=== PATIENT | female | born 1960 | race Caucasian/White ===

== ENCOUNTER 2018-04-03 16:10 | Observation (INO) ==
--- NOTE | 2018-04-03 16:55 | Emergency Department Note ---
Disposition Clinical Impression: Facial numbness, Urinary tract infection TIA (transient ischemic attack) Qualifiers: Transient cerebral ischemia type: unspecified Qualified Code(s): G45.9 - Transient cerebral ischemic attack, unspecified Disposition: Admitted As Inpatient Condition: Undetermined Time of Disposition: 19:08 General Adult HPI - General Chief complaint: ED General Medical Stated complaint: "L side face numb,urinating blood" Time Seen by Provider: 04/03/18 16:17 - History of Present Illness Pain Scale: 0 - Related Data Home Medications Medication Instructions Recorded Confirmed Alogliptin Benzoate [Alogliptin] 25 mg PO DAILY 04/03/18 04/03/18 Aspirin [Lo-Dose Aspirin EC] 81 mg PO DAILY 04/03/18 04/03/18 Lisinopril 2.5 mg PO DAILY 04/03/18 04/03/18 Metformin HCl [Glucophage] 1,000 mg PO BID 04/03/18 04/03/18 Simvastatin [Zocor] 20 mg PO HS 04/03/18 04/03/18 Allergies Allergy/AdvReac Type Severity Reaction Status Date / Time No Known Allergies Allergy Verified 12/10/17 10:01 Past Medical History - Past Medical History Medical history: Reports: diabetes, hyperlipidemia, hypertension, kidney stones Surgical history: Reports: ureteral stent (removal 12/09/15) Psychiatric history: Reports: no psych history SCRIP CLERK history: Reports: no SCRIP CLERK history - Social History Smoking Status: Never smoker Smokeless Tobacco Status: No Alcohol use: Reports: none Drug use: Reports: marijuana Physical Exam - General General appearance: alert, in no apparent distress Course Vital Signs Temperature 99.1 F 04/03/18 16:11 Pulse Rate 123 04/03/18 16:11 Respiratory Rate 20 04/03/18 16:11 Blood Pressure 154/96 04/03/18 16:11 O2 Sat by Pulse Oximetry 95 04/03/18 16:11 Temperature 99.1 F 04/03/18 16:23 Pulse Rate 74 04/03/18 18:33 Respiratory Rate 12 04/03/18 20:47 Blood Pressure 136/77 04/03/18 20:47 O2 Sat by Pulse Oximetry 98 04/03/18 18:33 Oxygen Delivery Oxygen Delivery Room Air Medical Decision Making - Lab Data Result diagrams: 04/03/18 16:39 04/03/18 16:39 Lab Results 04/03/18 04/03/18 04/03/18 Range/Units 16:14 16:39 16:39 WBC 10.6 (4.3-11.1) K/mcL RBC 4.90 (3.82-4.97) M/mcL Hgb 13.6 (11.5-15.4) g/dL Hct 39.1 (35.3-44.9) % MCV 79.8 L (83.0-100.0) fL MCH 27.8 L (28.0-33.3) pg MCHC 34.8 (31.6-35.5) g/dL RDW 12.4 (11.5-14.5) % Plt Count 294 (140-400) K/mcL MPV 10.3 (9.4-12.4) fL Immature Gran % 0.6 (0-4) % Seg Neutrophils % 66.6 % Lymphocytes % 26.7 % Monocytes % 4.8 % Eosinophils % 0.9 % Basophils % 0.4 % Neutrophils # 7.0 (1.6-8.9) K/mcL Lymphocytes # 2.8 (0.6-4.6) K/mcL Monocytes # 0.5 (0.0-1.3) K/mcL Eosinophils # 0.1 (0.0-0.6) K/mcL Basophils # 0.0 (0.0-0.2) K/mcL PT 11.2 (9.4-12.1) Seconds INR 1.0 APTT 29.6 (26.0-36.0) Seconds Sodium (136-145) mEq/L Potassium (3.5-5.1) mEq/L Chloride (98-107) mEq/L Carbon Dioxide (23-29) mEq/L BUN (6-20) mg/dL Creatinine (0.60-1.20) mg/dL Est GFR ( Amer) (> 60) Est GFR (Non-Af Amer) (> 60) BUN/Creatinine Ratio (6-26) Glucose (70-105) mg/dL POC Glucose 283 H (70-99) mg/dL Calculated Osmolality (280-300) Calcium (8.6-10.3) mg/dL Urine Color (Yellow) Urine Clarity (Clear) Urine pH (5.0-8.0) pH Units Ur Specific [place] (1.010-1.025) Urine Protein (Neg-Trace) mg/dL Urine Glucose (UA) (Normal) mg/dL Urine Ketones (Negative) mg/dL Urine Blood (Negative) Urine Nitrite (Negative) Urine Bilirubin (Negative) Urine Urobilinogen (Normal) mg/dL Ur Leukocyte Esterase (Negative) Urine Microscopic RBC (0-3) per hpf Urine Microscopic WBC (0-3) per hpf Ur Squamous Epith Cells (None-Few) per lpf Urine Bacteria (None-Few) per hpf Hyaline Casts (None-Few) per lpf Ur Culture Indicated? (NO) 04/03/18 04/03/18 Range/Units 16:39 17:45 WBC (4.3-11.1) K/mcL RBC (3.82-4.97) M/mcL Hgb (11.5-15.4) g/dL Hct (35.3-44.9) % MCV (83.0-100.0) fL MCH (28.0-33.3) pg MCHC (31.6-35.5) g/dL RDW (11.5-14.5) % Plt Count (140-400) K/mcL MPV (9.4-12.4) fL Immature Gran % (0-4) % Seg Neutrophils % % Lymphocytes % % Monocytes % % Eosinophils % % Basophils % % Neutrophils # (1.6-8.9) K/mcL Lymphocytes # (0.6-4.6) K/mcL Monocytes # (0.0-1.3) K/mcL Eosinophils # (0.0-0.6) K/mcL Basophils # (0.0-0.2) K/mcL PT (9.4-12.1) Seconds INR APTT (26.0-36.0) Seconds Sodium 134 L (136-145) mEq/L Potassium 3.8 (3.5-5.1) mEq/L Chloride 104 (98-107) mEq/L Carbon Dioxide 23 (23-29) mEq/L BUN 12 (6-20) mg/dL Creatinine 0.71 (0.60-1.20) mg/dL Est GFR ( Amer) > 60 (> 60) Est GFR (Non-Af Amer) > 60 (> 60) BUN/Creatinine Ratio 17 (6-26) Glucose 298 H (70-105) mg/dL POC Glucose (70-99) mg/dL Calculated Osmolality 289 (280-300) Calcium 9.4 (8.6-10.3) mg/dL Urine Color [place] A (Yellow) Urine Clarity Cloudy A (Clear) Urine pH 6.0 (5.0-8.0) pH Units Ur Specific [place] 1.021 (1.010-1.025) Urine Protein Negative (Neg-Trace) mg/dL Urine Glucose (UA) 500 H (Normal) mg/dL Urine Ketones Negative (Negative) mg/dL Urine Blood Negative (Negative) Urine Nitrite Positive A (Negative) Urine Bilirubin Negative (Negative) Urine Urobilinogen Normal (Normal) mg/dL Ur Leukocyte Esterase Moderate H (Negative) Urine Microscopic RBC 5-15 H (0-3) per hpf Urine Microscopic WBC 30-50 H (0-3) per hpf Ur Squamous Epith Cells Many H (None-Few) per lpf Urine Bacteria None Seen (None-Few) per hpf Hyaline Casts None Seen (None-Few) per lpf Ur Culture Indicated? NO. A (NO) Attestation Statement - Attestation Attestation: I examined this patient and my medical decision-making was reviewed with the DOUGH MIXER HELPER/PA/Advanced Practice Nurse/Resident Physician. I agree with the documented findings, disposition and treatment plan as described except to the extent set forth below. Patient has 2 main complaints which her head pressure and hematuria. Her head pressure started around 3:30 with associated left face numbness and the daughter thought she saw a facial droop earlier but there is none at this time. No numbness of the arm or leg on either side. No slurred speech or confusion. No history of stroke. Patient also has complaint of blood in the urine and dysuria no complaints of back pain. She does have a history of renal stone. Patient will have a head CT done as well as CT of the abdomen looking for a ureteral stone. Labs are pending. Urine testing is pending. Is here with her fiance and her daughter. Patient does not have focal neurologic changes on her neurologic exam. 1655 Patient initially did not want to go home and I did speak with her and explained some of the risks and because of the left-sided facial numbness and the facial droop is seen by her daughter she will be admitted for further evaluation of possible TIA. We will do a bedside swallow study here and if she passes she will get a oral aspirin 1927
[2018-04-03 17:28] LABS: Basophils % 0.4 %; Eosinophils # 0.1 K/mcL (0.0-0.6); Eosinophils % 0.9 %; Hematocrit 39.1 % (35.3-44.9); Hemoglobin 13.6 g/dL (11.5-15.4); Immature Granulocytes % 0.6 % (0-4); Lymphocytes # 2.8 K/mcL (0.6-4.6); Lymphocytes % 26.7 %; Mean Corpuscular HGB Conc 34.8 g/dL (31.6-35.5); Mean Corpuscular Hemoglobin 27.8 pg (28.0-33.3); Mean Corpuscular Volume 79.8 fL (83.0-100.0); Mean Platelet Volume 10.3 fL (9.4-12.4); Monocytes # 0.5 K/mcL (0.0-1.3); Monocytes % 4.8 %; Platelet Count 294 K/mcL (140-400); Red Cell Distribution Width 12.4 % (11.5-14.5); Segmented Neutrophils % 66.6 %
[2018-04-03 17:33] LABS: Prothrombin Time 11.2 Seconds (9.4-12.1)
[2018-04-03 17:36] LABS: Activated Partial Thrombo Time 29.6 Seconds (26.0-36.0)
[2018-04-03 17:53] LABS: BUN/Creatinine Ratio 17 (6-26); Blood Urea Nitrogen 12 mg/dL (6-20); Calcium 9.4 mg/dL (8.6-10.3); Carbon Dioxide 23 mEq/L (23-29); Chloride 104 mEq/L (98-107); Glucose 298 mg/dL (70-105); Osmolality,Calculated 289 (280-300); Potassium 3.8 mEq/L (3.5-5.1); Sodium 134 mEq/L (136-145); eGFR For African Americans > 60 (> 60); eGFR For Non-African Americans > 60 (> 60)
[2018-04-03 17:58] LABS: Bilirubin,Urine Negative (Negative); Blood,Urine Negative (Negative); Clarity,Urine Cloudy (Clear); Color,Urine Orange (Yellow); Glucose,Urine (UA) 500 mg/dL (Normal); Ketones,Urine Negative (Negative); Leukocyte Esterase,Urine Moderate (Negative); Nitrite,Urine Positive (Negative); Protein,Urine Negative (Neg-Trace); Specific Gravity,Urine 1.021 (1.010-1.025); Urobilinogen,Urine Normal (Normal)
[2018-04-03 18:00] LABS: Bacteria,Urine None Seen per hpf (None-Few); Hyaline Casts,Urine None Seen per lpf (None-Few); Squamous Epithelial Cell,Urine Many per lpf (None-Few); WBC,Urine 30-50 per hpf (0-3)
--- NOTE | 2018-04-03 18:00 | Emergency Department Note ---
Disposition Clinical Impression: Facial numbness TIA (transient ischemic attack) Qualifiers: Transient cerebral ischemia type: unspecified Qualified Code(s): G45.9 - Transient cerebral ischemic attack, unspecified Urinary tract infection Qualifiers: Urinary tract infection type: acute cystitis Hematuria presence: with hematuria Qualified Code(s): N30.01 - Acute cystitis with hematuria Disposition: Admitted As Inpatient Condition: Good Referrals: NONE,PCP [Primary Care Provider] - Forms: ED Satisfaction Letter, Work/School Release Time of Disposition: 20:28 General Adult HPI - General Chief complaint: ED General Medical Stated complaint: "L side face numb,urinating blood" Time Seen by Provider: 04/03/18 16:17 Source: patient, family ([place]) Mode of arrival: ambulatory Limitations: no limitations Nursing Notes Reviewed: Yes Vital Signs Reviewed: Yes - History of Present Illness HPI Narrative: 57-year-old female presents with complaint of facial numbness and blood in the urine. She reports feeling some head pressure around 1530 with some associated left facial numbness. Her daughter believes that she has some facial drooping at the time but currently states it has improved. The patient denied any arm or leg weakness or numbness. No slurred speech or confusion. She does not have a history of stroke. Her other main complaint was some blood in the urine and dysuria yesterday. Typically this is indication of urinary tract infection. Patient took some [id number] medication as well as cranberry juice and reports resolution of the symptoms. At this time she denies any abdominal pain. She denies any dysuria at this time. Denies any nausea or vomiting. Denies recent injury or trauma to the head. Pain Scale: 0 - Related Data Home Medications Medication Instructions Recorded Confirmed Alogliptin Benzoate [Alogliptin] 25 mg PO DAILY 04/03/18 04/03/18 Aspirin [Lo-Dose Aspirin EC] 81 mg PO DAILY 04/03/18 04/03/18 Lisinopril 2.5 mg PO DAILY 04/03/18 04/03/18 Metformin HCl [Glucophage] 1,000 mg PO BID 04/03/18 04/03/18 Simvastatin [Zocor] 20 mg PO HS 04/03/18 04/03/18 Allergies Allergy/AdvReac Type Severity Reaction Status Date / Time No Known Allergies Allergy Verified 12/10/17 10:01 All systems ED: reviewed and negative except as stated. Review of Systems: As Per HPI Constitutional: Denies: fever, chills, weakness ENT ED: Denies: congestion Cardiovascular: Denies: chest pain Respiratory: Denies: cough, dyspnea Gastrointestinal: Denies: abdominal pain, nausea, vomiting Genitourinary: Reports: dysuria, hematuria. Denies: urgency Musculoskeletal: Denies: back pain, neck pain Integumentary: Denies: rash, abrasion Past Medical History - Past Medical History Attestation: Yes The following information was validated with the patient. Source: patient Medical history: Reports: diabetes, hyperlipidemia, hypertension, kidney stones Surgical history: Reports: ureteral stent (removal 12/09/15) Psychiatric history: Reports: no psych history RECEIVER BULK SYSTEM history: Reports: no RECEIVER BULK SYSTEM history - Social History Smoking Status: Never smoker Smokeless Tobacco Status: No Alcohol use: Reports: none Drug use: Reports: marijuana Physical Exam - General Limitations: no limitations General appearance: alert, in no apparent distress - Head Head exam: atraumatic, normocephalic, normal inspection - Eye Eye exam: Present: normal appearance, PERRL, EOMI. Absent: nystagmus - ENT ENT exam: normal exam, normal oropharynx, mucous membranes moist - Neck Neck exam: Present: normal inspection, full ROM, trachea midline. Absent: tenderness, meningismus - Chest Chest inspection: Present: normal inspection, symmetric chest wall rise - Respiratory Respiratory exam: Present: normal lung sounds bilaterally - Cardiovascular Cardiovascular exam: Present: regular rate, normal rhythm, normal heart sounds - Abdominal Exam Abdominal exam: Present: soft, Non-Tender, normal bowel sounds. Absent: tenderness, distention, guarding, rebound, rigidity - Extremities Exam Extremities exam: Present: normal inspection, full ROM, normal capillary refill. Absent: tenderness, pedal edema - Back Exam Back exam: Present: normal inspection, full ROM. Absent: tenderness, CVA tenderness (R), CVA tenderness (L) - Neurological Exam Neurological exam: Present: alert, oriented X3, CN II-XII intact - Expanded Neurological Exam Patient oriented to: Present: person, place, time Speech: Present: fluid speech Cranial nerves: EOM function (II, III, IV, ): Normal, facial sensation (V): Normal, facial palsy (VII): Normal, gag reflex (IX): Normal, spinal accessory function (XI): Normal, tongue deviation (XII): Normal Cerebellar function: heel to will: Normal Motor strength - LUE: 5/5 Motor strength - RUE: 5/5 Motor strength - LLE: 5/5 Motor strength - RLE: 5/5 Upper motor neuron exam: sadiq neglect: Absent bilaterally, pronator drift: Absent bilaterally Sensory exam upper extremity: light touch: Normal Sensory exam lower extremity: light touch: Normal - Psychiatric Psychiatric exam: Present: normal mood, flat affect - Skin Skin exam: Present: warm, dry, intact, normal color. Absent: rash, cyanosis, diaphoresis Course Course Narrative: Patient presents with nonspecific complaints including head pressure, not feeling right, facial numbness and hematuria. Urinalysis performed consistent with urinary tract infection. He has a history of kidney stones but denies any abdominal pain or back pain. We performed a CT that did not reveal any intra- abdominal abnormalities. Her other complaint was the facial numbness concerning for possible TIA versus CVA. No history of stroke. Last well-known roughly around 1530. Daughter report some facial droop on the left. No slurred speech. Neurologic exam is normal without any focal neural deficits. Initial NIH score of 0. She is not have any weakness or strength deficit. Stroke workup was initiated. - Reevaluation(s) Reevaluation #1: Review of the CT of the head unremarkable for hemorrhagic stroke. She reports some improvement of her symptoms with decrease in her blood pressure. The fianc e reports noticeable facial droop on the left still. She has a symmetrical smile on my examination. Reevaluation neurologic exam is normal without any focal deficits. NIH remained 0. At this time given her symptoms will admit her for evaluation of TIA CVA. Patients in agreement with this plan for admission and further evaluation and management. She will be given a dose of aspirin after passing swallow evaluation. We will treat her urinary tract infection with Rocephin. Patients in agreement this plan. Impression is TIA, facial numbness, urinary tract infection. Vital Signs Temperature 99.1 F 04/03/18 16:11 Pulse Rate 123 04/03/18 16:11 Respiratory Rate 20 04/03/18 16:11 Blood Pressure 154/96 04/03/18 16:11 O2 Sat by Pulse Oximetry 95 04/03/18 16:11 Temperature 99.1 F 04/03/18 16:23 Pulse Rate 74 04/03/18 18:33 Respiratory Rate 20 04/03/18 18:33 Blood Pressure 129/86 04/03/18 18:33 O2 Sat by Pulse Oximetry 98 04/03/18 18:33 Oxygen Delivery Oxygen Delivery Room Air Medical Decision Making - MDM Narrative Medical decision making narrative: Patient was discussed with my attending physician who agrees with ED management and final disposition. They independently evaluated the patient. Please refer to their attestation to this encounter for additional information. This note was generated by Software 2000 recognition software and as a result grammatical or spelling errors may occur using this program. - Medical Records Medical records reviewed: Yes I reviewed the patient's medical records. - Lab Data Lab results reviewed: Yes I reviewed the patient's lab results. Result diagrams: 04/03/18 16:39 04/03/18 16:39 Lab Results 04/03/18 04/03/18 04/03/18 Range/Units 16:14 16:39 16:39 WBC 10.6 (4.3-11.1) K/mcL RBC 4.90 (3.82-4.97) M/mcL Hgb 13.6 (11.5-15.4) g/dL Hct 39.1 (35.3-44.9) % MCV 79.8 L (83.0-100.0) fL MCH 27.8 L (28.0-33.3) pg MCHC 34.8 (31.6-35.5) g/dL RDW 12.4 (11.5-14.5) % Plt Count 294 (140-400) K/mcL MPV 10.3 (9.4-12.4) fL Immature Gran % 0.6 (0-4) % Seg Neutrophils % 66.6 % Lymphocytes % 26.7 % Monocytes % 4.8 % Eosinophils % 0.9 % Basophils % 0.4 % Neutrophils # 7.0 (1.6-8.9) K/mcL Lymphocytes # 2.8 (0.6-4.6) K/mcL Monocytes # 0.5 (0.0-1.3) K/mcL Eosinophils # 0.1 (0.0-0.6) K/mcL Basophils # 0.0 (0.0-0.2) K/mcL PT 11.2 (9.4-12.1) Seconds INR 1.0 APTT 29.6 (26.0-36.0) Seconds Sodium (136-145) mEq/L Potassium (3.5-5.1) mEq/L Chloride (98-107) mEq/L Carbon Dioxide (23-29) mEq/L BUN (6-20) mg/dL Creatinine (0.60-1.20) mg/dL Est GFR ( Amer) (> 60) Est GFR (Non-Af Amer) (> 60) BUN/Creatinine Ratio (6-26) Glucose (70-105) mg/dL POC Glucose 283 H (70-99) mg/dL Calculated Osmolality (280-300) Calcium (8.6-10.3) mg/dL Urine Color (Yellow) Urine Clarity (Clear) Urine pH (5.0-8.0) pH Units Ur Specific [place] (1.010-1.025) Urine Protein (Neg-Trace) mg/dL Urine Glucose (UA) (Normal) mg/dL Urine Ketones (Negative) mg/dL Urine Blood (Negative) Urine Nitrite (Negative) Urine Bilirubin (Negative) Urine Urobilinogen (Normal) mg/dL Ur Leukocyte Esterase (Negative) Urine Microscopic RBC (0-3) per hpf Urine Microscopic WBC (0-3) per hpf Ur Squamous Epith Cells (None-Few) per lpf Urine Bacteria (None-Few) per hpf Hyaline Casts (None-Few) per lpf Ur Culture Indicated? (NO) 04/03/18 04/03/18 Range/Units 16:39 17:45 WBC (4.3-11.1) K/mcL RBC (3.82-4.97) M/mcL Hgb (11.5-15.4) g/dL Hct (35.3-44.9) % MCV (83.0-100.0) fL MCH (28.0-33.3) pg MCHC (31.6-35.5) g/dL RDW (11.5-14.5) % Plt Count (140-400) K/mcL MPV (9.4-12.4) fL Immature Gran % (0-4) % Seg Neutrophils % % Lymphocytes % % Monocytes % % Eosinophils % % Basophils % % Neutrophils # (1.6-8.9) K/mcL Lymphocytes # (0.6-4.6) K/mcL Monocytes # (0.0-1.3) K/mcL Eosinophils # (0.0-0.6) K/mcL Basophils # (0.0-0.2) K/mcL PT (9.4-12.1) Seconds INR APTT (26.0-36.0) Seconds Sodium 134 L (136-145) mEq/L Potassium 3.8 (3.5-5.1) mEq/L Chloride 104 (98-107) mEq/L Carbon Dioxide 23 (23-29) mEq/L BUN 12 (6-20) mg/dL Creatinine 0.71 (0.60-1.20) mg/dL Est GFR ( Amer) > 60 (> 60) Est GFR (Non-Af Amer) > 60 (> 60) BUN/Creatinine Ratio 17 (6-26) Glucose 298 H (70-105) mg/dL POC Glucose (70-99) mg/dL Calculated Osmolality 289 (280-300) Calcium 9.4 (8.6-10.3) mg/dL Urine Color [place] A (Yellow) Urine Clarity Cloudy A (Clear) Urine pH 6.0 (5.0-8.0) pH Units Ur Specific [place] 1.021 (1.010-1.025) Urine Protein Negative (Neg-Trace) mg/dL Urine Glucose (UA) 500 H (Normal) mg/dL Urine Ketones Negative (Negative) mg/dL Urine Blood Negative (Negative) Urine Nitrite Positive A (Negative) Urine Bilirubin Negative (Negative) Urine Urobilinogen Normal (Normal) mg/dL Ur Leukocyte Esterase Moderate H (Negative) Urine Microscopic RBC 5-15 H (0-3) per hpf Urine Microscopic WBC 30-50 H (0-3) per hpf Ur Squamous Epith Cells Many H (None-Few) per lpf Urine Bacteria None Seen (None-Few) per hpf Hyaline Casts None Seen (None-Few) per lpf Ur Culture Indicated? NO. A (NO) - Radiology Data Radiology results reviewed: Yes I reviewed the patient's radiology results. Abdomen/Pelvis CT 04/03/18 16:49 IMPRESSION: 1. There is a nonobstructing stone noted in the upper pole of the right kidney measuring approximately 5 mm in diameter, new since the 06/05/2016 exam. No obstructing ureteral calculi. 2. Atherosclerotic disease. 3. Nonspecific thickening of the bladder wall. This could be related to incomplete distention, however, underlying infection cannot entirely be excluded. D/ / 04/03/2018 17:39:25 Jostin Stoner MD / alejandra Interpreting Provider: Jostin Stoner MD Chest X-Ray 04/03/18 16:49 IMPRESSION: No acute cardiopulmonary disease. D/ / Arun Celeste MD / Arun Celeste MD Interpreting Provider: Arun Celeste MD Head CT 04/03/18 17:59 IMPRESSION: No acute intracranial abnormality. D/ / Priyank Duckworth MD / Priyank Duckworth MD Interpreting Provider: Priyank Duckworth MD Stroke Scale - Level of Consciousness LOC: Alert - LOC Questions LOC Questions: Answers both correctly - LOC Commands LOC Commands: Performs both correctly - Best Gaze Best Gaze: Normal - Visual Visual: No visual loss - Facial Palsy Facial Palsy: Normal - Motor Arms Motor Arm-Left: No drift for 10 seconds Motor Arm-Right: No drift for 10 seconds - Motor Legs Motor Leg-Left: No drift for 5 seconds Motor Leg-Right: No drift for 5 seconds - Limb Ataxia Limb Ataxia: Absent of affected limb too weak to perform exam - Sensory Sensory: Normal - Best Language Best Language: No aphasia - Dysarthria Dysarthria: Normal - Extinction and Inattention Extinction and Inattention: Normal - NIHSS Total Score NIHSS Total Score: 0
[2018-04-03] MEDS ORDERED: cefTRIAXone 2,000 MG in Water for inj. (sterile) 20 ML 20 ML IVP ONE (19:27)
[2018-04-03] MEDS ORDERED: Aspirin 81 MG TAB.CHEW PO STA (19:27)
--- NOTE | 2018-04-04 08:39 | Event Note ---
Date of Encounter: 04/04/18 Time of Encounter: 08:38 The patient left AMA from the ED before my time of evaluation. The plan was to admit for stroke work up and UTI.
== END 2018-04-03 20:50 | disposition left against medical advice (07) ==
LOC: EMEROO 16:10 → 3BNU 16:10
PROVIDERS: ADMIT Internal Medicine; ATTEND Internal Medicine